=== PATIENT | male | born 1960 | race African-American/Black ===

== ENCOUNTER 2016-02-28 10:08 | Inpatient (IN) | payer OTHER ==
[2016-02-28 10:45] VITALS: BMI 21.6
--- NOTE | 2016-02-28 12:46 | HP ---
CIWA Score - CIWA Score Nausea/Vomitin-No Nausea/No Vomiting Muscle Tremors: 4-Moderate,w/Arms Extend Anxiety: 4-Mod. Anxious/Guarded Agitation: 4-Moderately Restless Paroxysmal Sweats: 1-Minimal Palms Moist Orientation: 0-Oriented Tacttile Disturbances: 3-Moderate Itch/Numb/Burn Auditory Disturbances: 0-None Visual Disturbances: 0-None Headache: 0-None Present CIWA-Ar Total Score: 16 Admission ROS BHS - HPI Chief Complaint: DETOX TX FOR ALCOHOL DEPENDENCE Allergies/Adverse Reactions: Allergies Allergy/AdvReac Type Severity Reaction Status Date / Time shellfish derived Allergy Intermediate Swelling Verified 02/28/16 11:30 History of Present Illness: 55 Y/O AA/MALE WITH A HX OF ALCOHOL AND CRACK DEPENDENCE SEEKING DETOX TX. PT WAS DISCHARGED FROM [facility] ER FOR C/O COCAINE -INDUCED VASOSPASMS/CHEST PAIN/PALPITATIONS. STABILIZED AND CLEARED THEN REFERRED HERE TODAY FOR DETOX. PT WAS AT THE ER LAST WEEK FOR SAME REASON. PT WAS INSTRUCTED TO F/U WITH PMD DR WILLARD GARBER AT [facility]. PT HAS A HX OF STAGE II CKD...UNCLEAR ETIOLOGY. PT INSTRUCTION PLAN FOR OUTPATIENT WORK UP PER ER REPORT. Exam Limitations: No Limitations - Ebola screening Have you traveled outside of the country in the last 21 days: No Have you had contact with anyone from an Ebola affected area: No Have you been sick,other than usual withdrawal symptoms: No Do you have a fever: No - Review of Systems Constitutional: Chills, Loss of Appetite, Night Sweats, Changes in sleep, Unintentional Wgt. Loss EENT: reports: Nose Congestion, Dental Problems (BIATERAL DENTURES--LEFT THEM HOME) Respiratory: reports: No Symptoms reported Cardiac: reports: Lightheadedness GI: reports: Diarrhea, Nausea, Vomiting : reports: No Symptoms Reported Musculoskeletal: reports: Back Pain, Muscle Pain Integumentary: reports: Dryness, Rash, Other (SCRATCH BEHIND NECK) Neuro: reports: Headache, Tremors, Unsteady Gait, Dizziness Endocrine: reports: No Symptoms Reported Hematology: reports: No Symptoms Reported Psychiatric: reports: Orientated x3, Anxious, Depressed Other Systems: Reviewed and Negative Patient History - Patient Medical History Hx Anemia: No Hx Asthma: No Hx Chronic Obstructive Pulmonary Disease (COPD): No Hx Cardiac Disorders: No Hx Hypertension: No Hx Hypercholesterolemia: No HX Cerebrovascular Accident: No Hx Seizures: No Hx Diabetes: No Hx Gastrointestinal Disorders: No Hx Genitourinary Disorders: No Hx Sexually Transmitted Disorders: No Hx Renal Disease (ESRD): Yes (HX STAGE II CKD, UNCLEAR ETIOLOGY.) Hx Thyroid Disease: No Hx Human Immunodeficiency Virus (HIV): No (NEGATIVE HX) Hx Hepatitis C: No Hx Depression: Yes (ON MED) Hx Suicide Attempt: No Hx Schizophrenia: No - Patient Surgical History Past Surgical History: Yes Hx Neurologic Surgery: Yes (cerebral hemorrhage 4 yrs ago) Hx Cataract Extraction: No Hx Cardiac Surgery: No Hx Lung Surgery: No Hx Breast Surgery: No Hx Breast Biopsy: No Hx Appendectomy: No Hx Cholecystectomy: No Hx Genitourinary Surgery: No Hx Orthopedic Surgery: Yes (back surgery 4 yrs ago- 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 History Hx Alcohol Use: Yes (VODKA) Hx Substance Use: Yes (CRACK) Substance Use Type: Alcohol, Cocaine Hx Substance Use Treatment: Yes ([facility]-DETOX) - Substances Abused Alcohol Route: Oral Frequency: Daily Amount used: vodka 1 1/2 pt 3 beers daily- $60 Age of first use: 21 Date of Last Use: 02/27/16 Crack Route: Smoking Frequency: Daily Amount used: $60- 6bags Age of first use: 21 Date of Last Use: 02/27/16 Family Disease History - Family Disease History Family History: Denies Admission Physical Exam BHS - Vital Signs Vital Signs: Vital Signs - 24 hr 02/28/16 10:43 Temperature 97.1 F L Pulse Rate 98 H Respiratory 18 Rate Blood Pressure 121/84 - Physical General Appearance: Yes: Moderate Distress, Irritable, Anxious HEENTM: Yes: EOMI, Normocephalic, NIXON, Pharynx Normal, Photophobia, Nasal Congestion Respiratory: Yes: Chest Non-Tender, Lungs Clear, Normal Breath Sounds, No Respiratory Distress Neck: Yes: Supple, Trachea in good position Breast: Yes: Breast Exam Deferred Cardiology: Yes: Regular Rhythm, Regular Rate, S1, S2 Abdominal: Yes: Normal Bowel Sounds, Non Tender, Flat, Soft Genitourinary: Yes: Other (N/C) Musculoskeletal: Yes: full range of Motion, Gait Steady Extremities: Yes: Normal Range of Motion, Non-Tender Neurological: Yes: supervisor facepiece line II-XII NML intact, Fully Oriented, Alert Integumentary: Yes: Dry, Warm Lymphatic: Yes: Within Normal Limits - Diagnostic (1) Alcohol dependence with uncomplicated withdrawal Current Visit: Yes Status: Acute (2) Cocaine dependence, uncomplicated Current Visit: Yes Status: Acute Cleared for Admission [facility] - Detox or Rehab [facility] Level of Care: Medically Managed Detox Regimen/Protocol: Librium [facility] Breath Alcohol Content Breath Alcohol Content: 0 Urine Drug Screen - Results Drug Screen Negative: No Urine Drug Screen Results: TATUM-Cocaine, BZO-Benzodiazepines
[2016-02-28] MEDS ORDERED: MAG HYDROX/AL HYDROX/SIMETH 30 ML UNIT-DOSE CUP PO PRN (13:22)
[2016-02-28] MEDS ORDERED: NICOTINE POLACRILEX 4 MG GUM BUC PRN (13:22)
[2016-02-28] MEDS ORDERED: MENTHOL/PHENOL 1 EACH UD MM PRN (13:22)
[2016-02-28] MEDS ORDERED: ACETAMINOPHEN 325 MG TABLET (FP) PO PRN (13:22)
[2016-02-28] MEDS ORDERED: chlordiazePOXIDE HCL 25 MG CAPSULE PO PRN (13:22)
[2016-02-28] MEDS ORDERED: P-EPHED 60MG/TRIPROLIDI 2.5MG TABLET PO PRN (13:22)
[2016-02-28] MEDS ORDERED: LOPERAMIDE HCL 2 MG CAPSULE PO PRN (13:22)
[2016-02-28] MEDS ORDERED: guaiFENesin/D-METHORPHAN HB 10 ML UNIT-DOSE CUPS PO PRN (13:22)
[2016-02-28] MEDS ORDERED: MAGNESIUM HYDROX 2400MG/30ML ORAL SUSPENSION 30 ML CUP PO PRN (13:22)
[2016-02-28] MEDS ORDERED: MAGNESIUM CITRATE 300 ML BOTTLE PO PRN (13:22)
[2016-02-28] MEDS ORDERED: hydrOXYzine PAMOATE 25 MG CAPSULE (FP) PO PRN (13:22)
[2016-02-28] MEDS ORDERED: chlordiazePOXIDE HCL 25 MG CAPSULE PO ONE (14:06)
[2016-02-28] MEDS: NICOTINE 21 MG/24 HOURS TOPICAL PATCH TD SCH (14:31)
[2016-02-28] MEDS: chlordiazePOXIDE HCL 25 MG CAPSULE PO SCH ×2 (17:06→22:08)
[2016-02-28 20:28] LABS: URINE APPEARANCE CLEAR; URINE BILIRUBIN NEGATIVE (NEGATIVE); URINE BLOOD NEGATIVE (NEGATIVE); URINE COLOR YELLOW; URINE GLUCOSE (UA) NEGATIVE (NEGATIVE); URINE KETONE NEGATIVE (NEGATIVE); URINE LEUK ESTERASE NEGATIVE (NEGATIVE); URINE NITRITE NEGATIVE (NEGATIVE); URINE PROTEIN NEGATIVE (NEGATIVE); URINE UROBILINOGEN NEGATIVE E.U./dl (0.2-1.0)
[2016-02-28] MEDS: THIAMINE HCL 100 MG TABLET (FP) PO SCH (22:08)
[2016-02-28] MEDS: diphenhydrAMINE HCL 50 MG CAPSULE PO PRN (22:08)
[2016-02-29] MEDS: chlordiazePOXIDE HCL 25 MG CAPSULE PO SCH ×4 (05:48→22:14)
[2016-02-29 10:19] LABS: MCH 29.9 pg (25.7-33.7); MEAN CELL VOLUME 90.8 fl (80-96); PLATELET COUNT 280 K/MM3 (134-434); WHITE BLOOD COUNT 3.4 K/mm3 (4.0-10.0)
--- NOTE | 2016-02-29 10:22 | CONSULT ---
[facility] Psychiatric Consult - Data Date of interview: 02/29/16 Admission source: [facility] Identifying data: This is 55 years old maloe with no psychiatric hospitalization history intoxicated with : Crack, Alcohol and Nicotine Substance Abuse History: - Smoking Cessation. Smoking history: Current every day smoker. Have you smoked in the past 12 months: Yes. Aproximately how many cigarettes per day: 30. Hx Chewing Tobacco Use: No. Initiated information on smoking cessation: Yes. 'Breaking Loose' booklet given: 02/28/16. - Substance & Tx. History. Hx Alcohol Use: Yes (VODKA). Hx Substance Use: Yes (CRACK). Substance Use Type: Alcohol, Cocaine. Hx Substance Use Treatment: Yes ([facility]- DETOX). - Substances Abused. Alcohol. Route: Oral. Frequency: Daily. Amount used: vodka 1 1/2 pt 3 beers daily- $60. Age of first use: 21. Date of Last Use: 02/27/16. Crack. Route: Smoking. Frequency: Daily. Amount used: $60- 6bags. Age of first use: 21. Date of Last Use: 02/27/16 Medical History: Denies Psychiatric History: Patient reports history of anxiety and insomnia, reports taking prior to admisison: Seroquel 50mg po qhs Physical/Sexual Abuse/Trauma History: Denies Additional Comment: Seroquel 50mg po qhs Mental Status Exam - Mental Status Exam Alert and Oriented to: Person Cognitive Function: Fair Patient Appearance: Unkempt Mood: Sad Affect: Flat Patient Behavior: Cooperative Speech Pattern: Delayed Voice Loudness: Normal Thought Process: Goal Oriented Thought Disorder: Being Controlled Hallucinations: Denies Suicidal Ideation: Denies Homicidal Ideation: Denies Insight/Judgement: Fair Sleep: Difficulty falling asleep Appetite: Fair Muscle strength/Tone: Normal Gait/Station: Shuffling Additional Comments: Seroquel 50mg po qhs Psychiatric Findings - Problem List ([place] 1, 2,3) (1) Alcohol dependence with uncomplicated withdrawal Current Visit: Yes Status: Acute (2) Cocaine dependence, uncomplicated Current Visit: Yes Status: Acute (3) Nicotine dependence Current Visit: Yes Status: Acute (4) Drug-induced mood disorder Current Visit: Yes Status: Suspected - Initial Treatment Plan Initial Treatment Plan: Seroquel 50mg po qhs
[2016-02-29 10:30] LABS: ALBUMIN 4.1 g/dl (3.4-5.0); ALK PHOS 157 U/L (45-117); ANION GAP 8 (8-16); BILIRUBIN,TOTAL 0.6 mg/dL (0.2-1.0); CO2 30 mmol/L (21-32); CREATININE 1.2 mg/dL (0.7-1.3); GLUCOSE,RANDOM 125 mg/dL (74-106); SGOT/AST 82 U/L (15-37); SGPT/ALT 78 U/L (12-78); TOT PROT 7.1 g/dl (6.4-8.2)
[2016-02-29] MEDS: PRENATAL VITAMINS W/ FOLIC ACID TABLET (FP) PO SCH (10:40)
[2016-02-29] MEDS: NICOTINE 21 MG/24 HOURS TOPICAL PATCH TD SCH (10:41)
--- NOTE | 2016-02-29 11:01 | PN ---
S CIWA - CIWA Score Nausea/Vomitin-Mild Nausea/No Vomiting Muscle Tremors: 3 Anxiety: 4-Mod. Anxious/Guarded Agitation: 4-Moderately Restless Paroxysmal Sweats: 3 Orientation: 0-Oriented Tacttile Disturbances: 0-None Auditory Disturbances: 0-None Visual Disturbances: 0-None Headache: 0-None Present CIWA-Ar Total Score: 15 BHS Progress Note (SOAP) Subjective: ANXIETY,TREMORS,SWEATING,INTERRUPTED SLEEP,RESTLESS. Objective: 02/29/16 11:00 Vital Signs - 8 hr 02/29/16 02/29/16 02/29/16 03:27 06:20 10:00 Temperature 96.1 F L 96.0 F L Pulse Rate 86 100 H Respiratory 18 18 20 Rate Blood Pressure 138/97 131/98 Laboratory Tests 02/28/16 02/29/16 02/29/16 14:00 05:45 05:45 WBC 3.4 L RBC 4.31 Hgb 12.9 Hct 39.2 MCV 90.8 MCHC 33.0 RDW 15.0 Plt Count 280 MPV 8.0 Sodium 141 Potassium 4.2 Chloride 103 Carbon Dioxide 30 Anion Gap 8 BUN 18 Creatinine 1.2 Creat Clearance w eGFR > 60 Random Glucose 125 H Calcium 9.0 Total Bilirubin 0.6 AST 82 H ALT 78 Alkaline Phosphatase 157 H Total Protein 7.1 Albumin 4.1 Urine Color Yellow Urine Appearance Clear Urine pH 5.0 Ur Specific [place] 1.028 Urine Protein Negative Urine Glucose (UA) Negative Urine Ketones Negative Urine Blood Negative Urine Nitrite Negative Urine Bilirubin Negative Urine Urobilinogen Negative Ur Leukocyte Esterase Negative LABS NOTED Assessment: 02/29/16 11:01 WITHDRAWAL SX. Plan: CONTINUE DETOX
[2016-02-29 11:30] LABS: SICKLE CELL SCREEN NEGATIVE (NEGATIVE)
[2016-02-29] MEDS: PANTOPRAZOLE 40 MG TABLET (FP) PO SCH (15:59)
[2016-02-29] MEDS: ASPIRIN 81 MG CHEWABLE TABLETS PO SCH (15:59)
--- NOTE | 2016-02-29 17:00 | EKG ---
Test Reason : Blood Pressure : / mmHG Vent. Rate : 093 BPM Atrial Rate : 093 BPM P-R Int : 122 ms QRS Dur : 080 ms QT Int : 352 ms P-R-T Axes : 075 050 058 degrees QTc Int : 437 ms NORMAL SINUS RHYTHM VOLTAGE CRITERIA FOR LEFT VENTRICULAR HYPERTROPHY ABNORMAL ECG NO PREVIOUS ECGS AVAILABLE Confirmed by GORDON STORY, J CARLOS ([id number]) on 02/29/2016 5:00:17 PM Referred By: Everette Covarrubias Confirmed By:J CARLOS LEYVA MD
--- NOTE | 2016-02-29 18:25 | PN ---
BHS Progress Note Note: RECEIVED NURSE CALL PATIENT REQUESTS ENSURE SUPPLEMENT
[2016-02-29] MEDS ORDERED: QUEtiapine FUMARATE 50 MG TABLET PO SCH (22:00)
[2016-02-29] MEDS: THIAMINE HCL 100 MG TABLET (FP) PO SCH (22:13)
[2016-03-01] MEDS: chlordiazePOXIDE HCL 25 MG CAPSULE PO SCH ×3 (06:05→10:42)
[2016-03-01] MEDS: PANTOPRAZOLE 40 MG TABLET (FP) PO SCH (10:42)
[2016-03-01] MEDS: PRENATAL VITAMINS W/ FOLIC ACID TABLET (FP) PO SCH (10:42)
[2016-03-01] MEDS: ASPIRIN 81 MG CHEWABLE TABLETS PO SCH (10:42)
[2016-03-01] MEDS: NICOTINE 21 MG/24 HOURS TOPICAL PATCH TD SCH (10:43)
--- NOTE | 2016-03-01 16:20 | PN ---
S CIWA - CIWA Score Nausea/Vomitin Muscle Tremors: 4-Moderate,w/Arms Extend Anxiety: 4-Mod. Anxious/Guarded Agitation: 4-Moderately Restless Paroxysmal Sweats: 3 Orientation: 0-Oriented Tacttile Disturbances: 1-Very Mild Itch/Numbness Auditory Disturbances: 0-None Visual Disturbances: 0-None Headache: 1-Very Mild CIWA-Ar Total Score: 20 BHS Progress Note (SOAP) Subjective: nausea, sweats, interrupted sleep, anxeity, tremor Objective: 03/01/16 16:19 Vital Signs - 24 hr 02/29/16 02/29/16 03/01/16 18:04 21:56 00:30 Temperature 98.4 F 95.7 F L Pulse Rate 94 H 94 H Respiratory 19 18 18 Rate Blood Pressure 129/91 135/89 03/01/16 03/01/16 03/01/16 03:30 06:08 09:41 Temperature 96.1 F L 97.3 F L Pulse Rate 107 H 104 H Respiratory 18 18 18 Rate Blood Pressure 112/84 125/90 03/01/16 13:53 Temperature 97.1 F L Pulse Rate 99 H Respiratory 20 Rate Blood Pressure 129/90 Laboratory Tests 02/28/16 02/29/16 02/29/16 14:00 05:45 05:45 WBC 3.4 L RBC 4.31 Hgb 12.9 Hct 39.2 MCV 90.8 MCHC 33.0 RDW 15.0 Plt Count 280 MPV 8.0 Sickle Cell Screen Negative Sodium 141 Potassium 4.2 Chloride 103 Carbon Dioxide 30 Anion Gap 8 BUN 18 Creatinine 1.2 Creat Clearance w eGFR > 60 Random Glucose 125 H Calcium 9.0 Total Bilirubin 0.6 AST 82 H ALT 78 Alkaline Phosphatase 157 H Total Protein 7.1 Albumin 4.1 Urine Color Yellow Urine Appearance Clear Urine pH 5.0 Ur Specific [place] 1.028 Urine Protein Negative Urine Glucose (UA) Negative Urine Ketones Negative Urine Blood Negative Urine Nitrite Negative Urine Bilirubin Negative Urine Urobilinogen Negative Ur Leukocyte Esterase Negative RPR Titer 02/29/16 05:45 WBC RBC Hgb Hct MCV MCHC RDW Plt Count MPV Sickle Cell Screen Sodium Potassium Chloride Carbon Dioxide Anion Gap BUN Creatinine Creat Clearance w eGFR Random Glucose Calcium Total Bilirubin AST ALT Alkaline Phosphatase Total Protein Albumin Urine Color Urine Appearance Urine pH Ur Specific [place] Urine Protein Urine Glucose (UA) Urine Ketones Urine Blood Urine Nitrite Urine Bilirubin Urine Urobilinogen Ur Leukocyte Esterase RPR Titer Nonreactive Assessment: 03/01/16 16:20 withdrawal sx Plan: cont detox.
[2016-03-01] MEDS: chlordiazePOXIDE 5 MG CAPSULE PO SCH ×2 (17:27→22:18)
[2016-03-01] MEDS: THIAMINE HCL 100 MG TABLET (FP) PO SCH (22:18)
[2016-03-01] MEDS: diphenhydrAMINE HCL 50 MG CAPSULE PO PRN (22:19)
[2016-03-02] MEDS: chlordiazePOXIDE 5 MG CAPSULE PO SCH ×2 (06:00→10:25)
[2016-03-02] MEDS: IBUPROFEN 400 MG TABLET (FP) PO PRN ×2 (06:03→22:18)
[2016-03-02] MEDS: ASPIRIN 81 MG CHEWABLE TABLETS PO SCH (10:25)
[2016-03-02] MEDS: PATIENT'S OWN MEDICATION (NON-FORMULARY) (Omeprazole 20 MG) PO SCH (10:25)
[2016-03-02] MEDS: PRENATAL VITAMINS W/ FOLIC ACID TABLET (FP) PO SCH (10:25)
[2016-03-02] MEDS: NICOTINE 21 MG/24 HOURS TOPICAL PATCH TD SCH (10:26)
--- NOTE | 2016-03-02 10:34 | PN ---
BHS Progress Note (SOAP) Subjective: shakes, sweats, chronic right flank pain Objective: 03/02/16 10:33 Vital Signs - 8 hr 03/02/16 03/02/16 03:30 06:25 Temperature 97 F L Pulse Rate 96 H Respiratory 20 18 Rate Blood Pressure 132/99 Laboratory Last Values WBC 3.4 K/mm3 (4.0-10.0) L 02/29/16 05:45 RBC 4.31 M/mm3 (4.00-5.60) 02/29/16 05:45 Hgb 12.9 GM/dL (11.7-16.9) 02/29/16 05:45 Hct 39.2 % (35.4-49) 02/29/16 05:45 MCV 90.8 fl (80-96) 02/29/16 05:45 MCHC 33.0 g/dl (32.0-35.9) 02/29/16 05:45 RDW 15.0 % (11.9-15.9) 02/29/16 05:45 Plt Count 280 K/MM3 (134-434) 02/29/16 05:45 MPV 8.0 fl (7.5-11.1) 02/29/16 05:45 Sickle Cell Screen Negative (NEGATIVE) 02/29/16 05:45 Sodium 141 mmol/L (136-145) 02/29/16 05:45 Potassium 4.2 mmol/L (3.5-5.1) 02/29/16 05:45 Chloride 103 mmol/L (98-107) 02/29/16 05:45 Carbon Dioxide 30 mmol/L (21-32) 02/29/16 05:45 Anion Gap 8 (8-16) 02/29/16 05:45 BUN 18 mg/dL (7-18) 02/29/16 05:45 Creatinine 1.2 mg/dL (0.7-1.3) 02/29/16 05:45 Creat Clearance w eGFR > 60 (>60) 02/29/16 05:45 Random Glucose 125 mg/dL (74-106) H 02/29/16 05:45 Calcium 9.0 mg/dL (8.5-10.1) 02/29/16 05:45 Total Bilirubin 0.6 mg/dL (0.2-1.0) 02/29/16 05:45 AST 82 U/L (15-37) H 02/29/16 05:45 ALT 78 U/L (12-78) 02/29/16 05:45 Alkaline Phosphatase 157 U/L (45-117) H 02/29/16 05:45 Total Protein 7.1 g/dl (6.4-8.2) 02/29/16 05:45 Albumin 4.1 g/dl (3.4-5.0) 02/29/16 05:45 Urine Color Yellow 02/28/16 14:00 Urine Appearance Clear 02/28/16 14:00 Urine pH 5.0 (5.0-8.0) 02/28/16 14:00 Ur Specific [place] 1.028 (1.001-1.035) 02/28/16 14:00 Urine Protein Negative (NEGATIVE) 02/28/16 14:00 Urine Glucose (UA) Negative (NEGATIVE) 02/28/16 14:00 Urine Ketones Negative (NEGATIVE) 02/28/16 14:00 Urine Blood Negative (NEGATIVE) 02/28/16 14:00 Urine Nitrite Negative (NEGATIVE) 02/28/16 14:00 Urine Bilirubin Negative (NEGATIVE) 02/28/16 14:00 Urine Urobilinogen Negative E.U./dl (0.2-1.0) 02/28/16 14:00 Ur Leukocyte Esterase Negative (NEGATIVE) 02/28/16 14:00 RPR Titer Nonreactive (NONREACTIVE) 02/29/16 05:45 Labs noted Assessment: 03/02/16 10:33 withdrawal sx Plan: continue detox
[2016-03-02] MEDS: chlordiazePOXIDE HCL 10 MG CAPSULE PO SCH ×2 (17:34→22:17)
[2016-03-02] MEDS: THIAMINE HCL 100 MG TABLET (FP) PO SCH (22:17)
[2016-03-03] MEDS: chlordiazePOXIDE HCL 10 MG CAPSULE PO SCH ×2 (06:22→10:20)
[2016-03-03 06:26] VITALS: BP 130/100; PULSE 108; TEMP 97.8
--- NOTE | 2016-03-03 09:58 | DS ---
[facility] Detox Discharge Summary Admission Date: 02/28/16 Discharge Date: 03/03/16 - History Present History: Alcohol Dependence, Cocaine Dependence Pertinent Past History: CKD II Hx of Cerebral Hemorrhage 4 years ago - Physical Exam Results Vital Signs: Vital Signs Temperature 97.8 F 03/03/16 06:25 Pulse Rate 108 H 03/03/16 06:25 Respiratory Rate 18 03/03/16 06:25 Blood Pressure 130/100 03/03/16 06:25 O2 Sat by Pulse Oximetry (%) Laboratory Tests 02/28/16 02/29/16 02/29/16 14:00 05:45 05:45 WBC 3.4 L RBC 4.31 Hgb 12.9 Hct 39.2 MCV 90.8 MCHC 33.0 RDW 15.0 Plt Count 280 MPV 8.0 Sickle Cell Screen Negative Sodium 141 Potassium 4.2 Chloride 103 Carbon Dioxide 30 Anion Gap 8 BUN 18 Creatinine 1.2 Creat Clearance w eGFR > 60 Random Glucose 125 H Calcium 9.0 Total Bilirubin 0.6 AST 82 H ALT 78 Alkaline Phosphatase 157 H Total Protein 7.1 Albumin 4.1 Urine Color Yellow Urine Appearance Clear Urine pH 5.0 Ur Specific [place] 1.028 Urine Protein Negative Urine Glucose (UA) Negative Urine Ketones Negative Urine Blood Negative Urine Nitrite Negative Urine Bilirubin Negative Urine Urobilinogen Negative Ur Leukocyte Esterase Negative RPR Titer 02/29/16 05:45 WBC RBC Hgb Hct MCV MCHC RDW Plt Count MPV Sickle Cell Screen Sodium Potassium Chloride Carbon Dioxide Anion Gap BUN Creatinine Creat Clearance w eGFR Random Glucose Calcium Total Bilirubin AST ALT Alkaline Phosphatase Total Protein Albumin Urine Color Urine Appearance Urine pH Ur Specific [place] Urine Protein Urine Glucose (UA) Urine Ketones Urine Blood Urine Nitrite Urine Bilirubin Urine Urobilinogen Ur Leukocyte Esterase RPR Titer Nonreactive Labs noted Pertinent Admission Physical Exam Findings: Withdrawal Symptoms - Treatment Hospital Course: Detox Protocol Followed, Detoxed Safely, Responded well, Discharged Condition Good Patient has Accepted a Rehab Referral to: Declined - Medication Discharge Medications: Ambulatory Orders Aspirin [ASA -] 81 mg PO DAILY 02/28/16 Folic Acid - 1 mg PO DAILY 02/28/16 Omeprazole 20 mg PO DAILY 02/28/16 Thiamine HCl [B-1] 100 mg PO DAILY 02/28/16 Quetiapine Fumarate [Seroquel -] 50 mg PO HS #30 tablet 02/29/16 - Diagnosis (1) Alcohol dependence with uncomplicated withdrawal Current Visit: Yes Status: Acute (2) Cocaine dependence, uncomplicated Current Visit: Yes Status: Acute (3) Nicotine dependence Current Visit: Yes Status: Acute Qualifiers: Nicotine product type: cigarettes Substance use status: uncomplicated Qualified Code(s): F17.210 - Nicotine dependence, cigarettes, uncomplicated (4) Drug-induced mood disorder Current Visit: Yes Status: Acute (5) Chronic kidney disease (CKD) Current Visit: Yes Status: Chronic Qualifiers: Chronic kidney disease stage: stage 2 (mild) Qualified Code(s): N18.2 - Chronic kidney disease, stage 2 (mild) - AMA Did Patient Leave Against Medical Advice: No
[2016-03-03] MEDS: PATIENT'S OWN MEDICATION (NON-FORMULARY) (Omeprazole 20 MG) PO SCH (10:20)
[2016-03-03] MEDS: PRENATAL VITAMINS W/ FOLIC ACID TABLET (FP) PO SCH (10:20)
[2016-03-03] MEDS: ASPIRIN 81 MG CHEWABLE TABLETS PO SCH (10:20)
[2016-03-03] MEDS: NICOTINE 21 MG/24 HOURS TOPICAL PATCH TD SCH (10:20)
== END 2016-03-03 10:55 | disposition home or self-care (01) | DRG 774 ==
LOC: YASAS 10:08 → Y3N 12:03
PROVIDERS: ADMIT Internal Medicine; ATTEND Internal Medicine
PROC: HZ2ZZZZ Detoxification Services for Substance Abuse Treatment (ICD-10-PCS; principal; 2016-02-28)
DX: F10.230 Alcohol dependence with withdrawal, uncomplicated (principal); F14.20 Cocaine dependence, uncomplicated; F17.210 Nicotine dependence, cigarettes, uncomplicated; F19.24 Other psychoactive substance dependence with psychoactive substance-induced mood disorder; N18.2 Chronic kidney disease, stage 2 (mild)
CPT/HCPCS: 36415; 80053; 81003; 85027; 85660; 86593; 93005; 93010